=== PATIENT | female | born 1955 | race Caucasian/White ===

== ENCOUNTER 2022-04-30 10:42 | Emergency (ER) | payer MEDICARE, BC, SELFPAY ==
[2022-04-30] VITALS (9 sets, daily range): BP systolic 101–117; BP diastolic 59–69; PULSE 61–74; RESP 14–32; TEMP 36.6; O2SAT 96–100; BMI 25.0
--- NOTE | 2022-04-30 10:55 | DI.RAD.S_ITS ---
PROCEDURE: XR CHEST 1V INDICATIONS: chest pain TECHNIQUE: One view of the chest was acquired. COMPARISON: None. FINDINGS: Surgical changes and devices: None. Lungs and pleura: Lungs are clear. No pleural effusions or pneumothorax. Mediastinum: Mediastinal contours appear normal. Heart size is normal. Bones and chest wall: No suspicious bony lesions. Overlying soft tissues appear unremarkable. IMPRESSION: No acute cardiopulmonary pathology. Dictated by: Johnathan Holliday M.D. on 04/30/2022 at 11:19 Approved by: Johnathan Holliday M.D. on 04/30/2022 at 11:19
[2022-04-30 11:34] LABS: Add Manual Diff / Slide Review NO; Basophils Absolute Auto 0 /uL (0-100); Basophils Percent Auto 0.3 % (0-2); Eosinophils Absolute Auto 0 /uL (0-450); Eosinophils Percent Auto 0.9 % (2-4); Hematocrit 39.7 % (36-46); Hemoglobin 13.7 g/dL (12.0-16.0); Lymphocytes Absolute Auto 1200 /uL (1100-4500); Lymphocytes Percent Auto 25.3 % (25-40); Mean Corpuscular HGB Conc 34.4 % (30-36); Mean Corpuscular Hemoglobin 29.6 PG (26-34); Mean Corpuscular Volume 86.1 fL (80-100); Monocytes Absolute Auto 300 /uL (0-900); Monocytes Percent Auto 5.4 % (3-14); Neutrophils Absolute Auto 3300 /uL (1500-7000); Neutrophils Percent Auto 68.1 % (50-75); Platelet Count 209 X10^3/uL (150-400); Red Blood Cell Count 4.61 X10^6/uL (4.0-5.2); White Blood Cell Count 4.9 X10^3/uL (4.5-11.0)
[2022-04-30 11:43] LABS: Alanine Aminotransferase 16 IU/L (<35); Albumin 4.1 g/dL (3.5-5.0); Albumin Globulin Ratio 1.8 (1.0-2.8); Alkaline Phosphatase 48 U/L (38-126); Aspartate Aminotransferase 23 IU/L (14-36); BUN Creatinine Ratio 19.7 (6-22); Bilirubin Total 0.5 mg/dL (0.2-1.3); Blood Urea Nitrogen 14 mg/dL (7-17); Calcium 9.1 mg/dL (8.4-10.2); Carbon Dioxide 26 mmol/L (22-32); Chloride 107 mmol/L (98-107); Creatine Kinase 70 U/L (30-135); Estimated Glomerular Filt Rate > 60 mL/min (>60); Globulin 2.3 g/dL (1.7-4.1); Glucose 108 mg/dL (80-110); HEMOLYSIS < 15 (0-50); Lipase 87 U/L (23-300); Magnesium 2.1 mg/dL (1.6-2.3); Potassium 4.1 mmol/L (3.4-5.1); Sodium 138 mmol/L (137-145); Total Protein 6.4 g/dL (6.3-8.2)
[2022-04-30 11:55] LABS: Troponin I < 0.012 ng/mL (0.01-0.034)
--- NOTE | 2022-04-30 11:55 | ED_ITS ---
HPI - Arrhythmia/Palpitations General Chief Complaint: Arrhythmia/Palpitations Stated Complaint: Irregular heart beat, light headed, jaw numb Time Seen by Provider: 04/30/22 10:52 Source: patient and family Mode of arrival: Ambulatory History of Present Illness HPI narrative: 67-year-old woman with a history of osteoporosis and chronic hypotension blood pressures typically running in the 90/60 range presents with increasing episodes of lightheadedness with near-syncope. She states that she is eating and drinking normally. She has not been gaining or losing weight. She is not complaining of chest pain but does complain of palpitations. She has a history of benign positional vertigo and describes this episode as significantly di fferent from that. She had been out hiking and on [place] way [place] the [place] felt lightheaded after she stood up quickly from time her shoe and took approximately 20-30 minutes to be able to continue on her hike which is significantly unusual. Near syncopal type symptoms were more notable today and she also noted some minor numbness along her entire jaw line bilaterally. She comes in for further evaluation. She also notes that she has a family history of a glioblastoma in her father and a glioma in her mother. Related Data Allergies Allergy/AdvReac Type Severity Reaction Status Date / Time Penicillins Allergy Verified 04/30/22 13:07 Review of Systems Review of Systems Narrative: Remainder of complete review of systems is otherwise unremarkable except for that included in the HPI. Patient History Medical History (Updated 04/30/22 @ 13:33 by Ambreen Cullen MD) Asthma Osteoporosis Social History Smoking Status: Never smoker Smoking Status: Never smoker alcohol intake frequency: holidays/special occasions only Substance Use Type: does not use Exam Initial Vital Signs Initial Vital Signs: Vital Signs Temperature 98 F 04/30/22 11:03 Pulse Rate 74 04/30/22 11:03 Respiratory Rate 16 04/30/22 11:03 Blood Pressure 113/63 04/30/22 11:03 Pulse Oximetry 99 04/30/22 11:03 Oxygen Delivery Method 04/30/22 11:03 General: Healthy appearing, in no acute distress. Able to give a complete and coherent history. Well-nourished well-developed HEENT: Moist mucous membranes, normal sclera with reactive pupils, Neck: No JVD, supple Respiratory: Lungs are clear to auscultation, no wheezing no rales no rhonchi. Full and symmetrical air movement Cardiac: Regular rate and rhythm no murmurs no bruits Abdomen: Soft, nontender, good bowel tones, no flank pain Skin: Warm and dry, no rashes Neurologic: Grossly neurologically intact with no obvious asymmetries or abnormalities Extremities: No trauma, well perfused Psych: Cooperative, appropriate insight and affect Course Orders Ordered: ED Orders 04/30/22 10:53 EKG-12 Lead Stat 04/30/22 10:55 XR chest 1V Stat 04/30/22 11:00 Complete Blood Count AUTO DIFF Stat Comprehensive Metabolic Panel Stat Lipase Stat Magnesium Stat Troponin & CK Cardiac Panel Stat 04/30/22 12:48 CT head/brain wo con Stat Sodium Chloride (Normal Saline 0.9%) 1,000 mls @ 1,000 mls/hr IV BOLUS ONE Stop: 04/30/22 13:47 Last Admin: 04/30/22 13:08 Dose: 1,000 mls/hr Vital Signs Vital signs: Vital Signs - 8 hr 04/30/22 11:03 04/30/22 12:24 04/30/22 12:30 Temperature 98 F Pulse Rate 74 67 Respiratory Rate 16 32 H Blood Pressure 113/63 109/60 Pulse Oximetry 99 96 Oxygen Delivery Method Room Air 04/30/22 12:30 Temperature Pulse Rate 64 Respiratory Rate 29 H Blood Pressure Pulse Oximetry 97 Oxygen Delivery Method MDM - Arrhythmia/Palpitations Lab Data Result diagrams: 04/30/22 11:00 04/30/22 11:00 Labs: Lab Results 04/30/22 04/30/22 Range/Units 11:00 11:00 WBC 4.9 (4.5-11.0) X10^3/uL RBC 4.61 (4.0-5.2) X10^6/uL Hgb 13.7 (12.0-16.0) g/dL Hct 39.7 (36-46) % MCV 86.1 (80-100) fL MCH 29.6 (26-34) PG MCHC 34.4 (30-36) % RDW 14.0 (11.6-14.8) % Plt Count 209 (150-400) X10^3/uL Neut % (Auto) 68.1 (50-75) % Lymph % (Auto) 25.3 (25-40) % Bath % (Auto) 5.4 (3-14) % Eos % (Auto) 0.9 L (2-4) % Baso % (Auto) 0.3 (0-2) % Neut # (Auto) 3300 (6132-0799) /uL Lymph # (Auto) 1200 (8037-2051) /uL Bath # (Auto) 300 (0-900) /uL Eos # (Auto) 0 (0-450) /uL Baso # (Auto) 0 (0-100) /uL Sodium 138 (137-145) mmol/L Potassium 4.1 (3.4-5.1) mmol/L Chloride 107 (98-107) mmol/L Carbon Dioxide 26 (22-32) mmol/L BUN 14 (7-17) mg/dL Creatinine 0.71 (0.52-1.04) mg/dL Estimated GFR > 60 (>60) mL/min BUN/Creatinine Ratio 19.7 (6-22) Glucose 108 (80-110) mg/dL Calcium 9.1 (8.4-10.2) mg/dL Magnesium 2.1 (1.6-2.3) mg/dL Total Bilirubin 0.5 (0.2-1.3) mg/dL AST 23 (14-36) IU/L ALT 16 (<35) IU/L Alkaline Phosphatase 48 (38-126) U/L Total Creatine Kinase 70 (30-135) U/L CK-MB (CK-2) TNP CK-MB (CK-2) Rel Index TNP Troponin I < 0.012 (0.01-0.034) ng/mL Total Protein 6.4 (6.3-8.2) g/dL Albumin 4.1 (3.5-5.0) g/dL Globulin 2.3 (1.7-4.1) g/dL Albumin/Globulin Ratio 1.8 (1.0-2.8) Lipase 87 (23-300) U/L Imaging Data CT scan - head: Radiologist's Impresson: FINDINGS:? Image quality:? Excellent.? ? CSF spaces:? Basal cisterns are patent.? No extra-axial fluid collections.? Ventricles are normal in size and shape.? ? Brain:? No midline shift.? No intracranial masses or hemorrhage.? Theodore-white matter interface is normal.? ? Skull and face:? Calvarium and visualized facial bones are intact, without suspicious lesions.? ? Sinuses:? Visualized sinuses and mastoids are clear.? ? IMPRESSION:? No CT evidence of acute intracranial abnormalities. ? ? Dictated by: Johnathan Holliday M.D. on 04/30/2022 at 13:08 ? ? ECG Data Interpretation: Sinus with minor sinus arrhythmia at a rate of 74 Normal axis No acute ischemic changes MDM Narrative Medical decision making narrative: Very healthy 67-year-old woman with a long history chronic low blood pressure she is very active and has noticed while she has been on vacation and hiking quite a bit that she is having more episodes of hypotension with an episode of near-syncope at the end of her last type. She is not complaining of chest pain. She states that she is drinking plenty of water and notes that her urine is typically quite dilute. On arrival she is hooked up to telemetry and is complaining of the sensation of palpitation with sinus rhythm clearly documented on EKG. Remainder of workup is quite reassuring including electrolytes, renal function no evidence of acute coronary syndrome, congestive heart failure. There is no clinical suggestion of stroke on her exam. The mild numbness that she has experience along the jaw is bilateral. There is no suggestion of infection and she is not particularly dehydrated. As no significant alternative diagnoses have been elucidated, and with the family history of a brain abnormalities a CT scan of the head is ordered. No evidence of tumors, masses, stroke or previous infarct. She is re-examined prior to discharge. Does not feel significantly different after L of fluid and she is not experiencing orthostatic hypotension despite the fact that she feels slightly lightheaded when she initially stands up. Questions are answered and she is safe for home discharge. 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 Discharge Plan Departure Patient Disposition: Home Clinical Impression: Palpitations, Orthostatic hypotension Instructions: DI for Orthostatic Hypotension Activity Restrictions/Additional Instructions: Thank you for coming in today Your description of your symptoms is certainly concerning. Your workup in the emergency department is quite reassuring today. You were attached to our telemetry monitors while you had an episode of a palpitation and the telemetry continued to show normal sinus rhythm. Your EKG is very reassuring. There is no sign of significant arrhythmia, heart attack or heart attack like symptoms. There is no sign of acute blood loss, infection, kidney or electrolyte abnormalities. We did do a CT scan of your brain that was very reassuring Norma normal. Specifically no prior strokes no obvious new strokes, no bleeding and no tumors or masses. When you get home, if you are still having symptoms you may benefit from longer outpatient heart monitoring with something similar to a Zio patch. If you have new or worsening symptoms please feel free to return to the emergency department. Due make sure that you follow-up with your primary care doctor once home. In the meantime I would recommend allowing yourself a bit of extra salt and make sure that you are drinking plenty of fluids.
--- NOTE | 2022-04-30 12:48 | DI.CT.S_ITS ---
PROCEDURE: CT HEAD/BRAIN WO CON INDICATIONS: syncope TECHNIQUE: Noncontrast 4.5 mm thick angled axial sections acquired from the foramen magnum to the vertex, with coronal and sagittal reformats. For radiation dose reduction, the following was used: automated exposure control, adjustment of mA and/or kV according to patient size. COMPARISON: None. FINDINGS: Image quality: Excellent. CSF spaces: Basal cisterns are patent. No extra-axial fluid collections. Ventricles are normal in size and shape. Brain: No midline shift. No intracranial masses or hemorrhage. Theodore-white matter interface is normal. Skull and face: Calvarium and visualized facial bones are intact, without suspicious lesions. Sinuses: Visualized sinuses and mastoids are clear. IMPRESSION: No CT evidence of acute intracranial abnormalities. Dictated by: Johnathan Holliday M.D. on 04/30/2022 at 13:08 Approved by: Johnathan Holliday M.D. on 04/30/2022 at 13:10
[2022-04-30] MEDS: SODIUM CHLORIDE 0.9% 1,000 ML 1000 ML IV (13:08)
== END 2022-04-30 14:40 | disposition home or self-care (01) ==
PROVIDERS: Emergency Provider Emergency Medicine
DX: I95.1 Orthostatic hypotension (principal); R00.2 Palpitations
CPT/HCPCS: 36415; 70450; 71045; 80053; 82550; 83690; 83735; 84484; 85025; 93005; 93010; 99284